=== PATIENT | male | born 1975 | race Caucasian/White ===

== ENCOUNTER 2016-10-19 12:47 | Emergency (ER) | payer BC ==
[2016-10-19 13:04] VITALS: RESP 20; TEMP 96.9
[2016-10-19] MEDS ORDERED: NORMAL SALINE 10 ML SYRINGE FLUSH IVP PRN (13:04)
--- NOTE | 2016-10-19 13:19 | PDOC ---
General Adult HPI - General Chief Complaint: General Medical Stated Complaint: SWEATS,CHILLS,BODY ACHES Date Seen by Provider: 10/19/16 Time Seen by Provider: 12:55 Source: POSITIVE: Patient Exam Limitations: POSITIVE: No limitations Nurse's Notes Reviewed & Considered: Yes - History of Present Illness Initial Comment: The patient is a 40-year-old male who presents to the emergency department with concerns about dehydration. He states that he has had previous gastric bypass surgery and at times he has had problems maintaining hydration in the past. He states for the past couple of days he's been doing some work outside, working out twice a day and probably has not drank enough fluids. He states for the past 24 hours or so he feels general malaise and generalized muscle aches as well as some increased shakiness. He reports decreased urination and dark colored urine the last 24 hours. He was able to eat breakfast and has been trying to push fluids however he states he feels like he cannot get caught up. He states that he has felt this way in the past when he is dehydrated. He denies any chest pain or shortness of breath, vomiting or diarrhea, sore throat , cough or congestion or any other associated complaints. He did recently return from an inpatient alcohol treatment facility. He states that he has been sober for 93 days and states that he remain sober. Have you received a tetanus shot in the past 10 years?: Yes - Patient Home Medications Home Medications: Home Medications Calcium Carbonate/Vitamin D3 [Calcium 500 + D Tablet] 1 each PO DAILY tab 09/12 Vit B Comp/C/FA/Iron/Vit E [Vitamin B Complex Tablet] 1 each PO DAILY tab 09/12 Cyanocobalamin (Vitamin B-12) [Vitamin B12] 2,400 mcg SL DAILY 03/04/16 Sildenafil Citrate [Viagra] 100 mg PO PRN #9 tab 05/30/16 Venlafaxine HCl [Venlafaxine Hcl Er] 1 tab PO DAILY #90 cap 08/20/16 - Patient Allergies Allergies/Adverse Reactions: Allergies Allergy/AdvReac Type Severity Reaction Status Date / Time No Known Drug Allergies Allergy Unknown NOT Verified 10/19/16 12:58 APPLICABLE Past Medical History - heen HEENT History: Denies History Cardiovascular History: Denies History Respiratory History: Denies History Gastrointestinal History: Denies History Genitourinary History: Denies History Endocrine History: Denies History Musculoskeletal History: Denies History Prosthesis or Implant: No Neurological History: Denies History Blood Disorders: Denies History Psychiatric History: Depression History of Sexually Transmitted Diseases: No Cancer History: Denies History In Past Year Been Physically Harmed or Verbally Threatened: No History of MDRO: No History of Other Communicable Diseases: No Tobacco Use: Never Smoker Alcohol Use: Sober Substance Use Type: None Previous Surgical History: Yes Type / Date of Surgery: GASTRIC BIPASS Anesthesia Reactions: No Malignant Hyperthermia: No Significant Family History: No pertinent family hx Past Medical History Reviewed: Reviewed - No Changes ROS - Limitations ROS Limitations: No Limitations Constitution: REPORTS: Chills. DENIES: Fever Cardiovascular: DENIES: Chest Pain, Heart Palpitations, Edema Neurological: DENIES: Confusion, Dizziness, Numbness, Weakness Gastrointestinal: DENIES: Abdominal Pain, Vomitting, Diarrhea Endocrine: REPORTS: Fatigue Musculoskeletal: REPORTS: Muscle Aches (Generalized) Genitourinary: REPORTS: Denies Symptoms, Other (Does report dark colored urine the last 24 hours) Eyes: REPORTS: Denies Symptoms ENT: REPORTS: Denies Symptoms Skin: DENIES: Rash General Adult Exam - General Appearance General Appearance: POSITIVE: Alert, Cooperative, No Acute Distress - HEENT HEENT: POSITIVE: Head Inspection Nml, Eyes Inspection Nml - Neck Neck: POSITIVE: Normal Inspection - Respiratory Respiratory: POSITIVE: No Respiratory Distress, Breath Sounds Normal - Cardiovascular Cardiovascular: POSITIVE: Regular Rate & Rhythm, No Murmur - Abdomen Abdomen: Soft: (All Quadrants), Normal Bowel Sounds: (All Quadrants), No Distention: (All Quadrants) - Skin Skin: POSITIVE: Normal Color, No Rash - Extremities Extremity: Normal ROM: (All Extremities), Normal Inspection: (All Extremities) - Neurological / Psychological Neurological: POSITIVE: Other (No focal neurologic deficits) General Adult Progress - Results Reviewed by me Lab Results Reviewed: Yes Lab Results:: Laboratory Results 10/19/16 10/19/16 Range/Units 13:11 13:15 WBC 9.57 (4.8-10.8) 10^3/uL RBC 4.36 L (4.70-6.10) 10^6/uL Hgb 12.6 L (14.0-18.0) g/dL Hct 37.9 L (42.0-52.0) % MCV 86.9 (80-90) FL MCH 28.9 (27-31) PG MCHC 33.2 (33-37) g/dL RDW Std Deviation 45.7 (39-50) fL RDW Coeff of [place]uma 14.7 H (11.5-14.5) % Plt Count 180 (140-350) 10*3/uL MPV 9.8 (7.4-12.2) FL Immature Gran % (Auto) 0.3 (0-5) % Neut % (Auto) 79.2 (50-80) % Lymph % (Auto) 9.4 L (10-50) % [place] % (Auto) 10.6 (5-15) % Eos % (Auto) 0.3 (0-8) % Baso % (Auto) 0.2 (0-1) % Immature Gran # (Auto) 0.03 10*3/UL Neut # (Auto) 7.85 10*3/UL Lymph # (Auto) 0.90 10*3/uL [place] # (Auto) 1.01 H (0.3-0.8) 10*3/UL Eos # (Auto) 0.03 10*3/UL Baso # (Auto) 0.02 10*3/UL WBC Morphology Comment Normal morphology (NORM) Plt Morphology Comment Normal morphology (NORM) RBC Morph Comment Normal morphology (NORM) Sodium 137 (135-145) meq/L Potassium 3.4 L (3.8-5.2) meq/L Chloride 105 (98-112) meq/L Carbon Dioxide 22 L (23-33) meq/L Anion Gap 10 (5-20) BUN 8 (7-22) mg/dL Creatinine 0.9 (0.70-1.50) mg/dL Estimated GFR > 60 (>60 ml/min/1.73m(2)) BUN/Creatinine Ratio 8.88 (6-20) Glucose 81 (78-110) mg/dL Calculated Osmolality 280.0 (267-292) mOsm/kg Calcium 8.4 L (8.7-10.7) mg/dL Magnesium 1.8 (1.6-2.4) mg/dL Total Bilirubin 2.5 H (0.3-1.2) mg/dL AST 130 H (21-57) IU/L ALT 166 H (21-72) IU/L Alkaline Phosphatase 103 (38-126) IU/L Total Creatine Kinase 1135 H (55-170) IU/L C-Reactive Protein 8.4 H (0.0-0.9) mg/dL Total Protein 6.0 L (6.1-8.0) g/dL Albumin 3.4 L (3.5-4.8) g/dL Globulin 2.6 (2.50-4.10) g/dL Albumin/Globulin Ratio 1.30 (1.3-2.0) mg/g - Patient's Progress MDM / ED Course: An IV was established and the patient did receive a 1 L bolus of normal saline. After administration of fluids the patient was feeling better clinically. His blood work does reveal elevated liver enzymes including an elevated bilirubin and transaminases. This has not been present on previous blood draws. In addition his CPK is elevated at 1135. The patient appears to have mild rhabdomyolysis which is most likely secondary to overexertion from twice daily workouts and working outside the last couple of days. He also likely has some degree of dehydration. The patient also admits he has been taking some pre -workout supplements. The exact cause of his elevated liver enzymes is unclear however he denies abdominal pain or nausea or vomiting. This also may be related to the supplements are overexertion. He is advised to rest and push fluids. He was advised to discontinue his supplements. He will return to the emergency room if he develops any worsening or change in symptoms. He is advised follow-up with primary care for repeat blood work in approximately a week. - Consult Counseled: POSITIVE: Patient, RE: Lab Results, RE: DX, RE: Need for F/U Patient Care Time - Estimated PCT Patient Care Time (In Minutes): 25 Vital Signs - Recent Vital Signs Vital Signs: Vital Signs (Last 8 hours) Temp Pulse Resp BP Pulse Ox 10/19/16 12:51 96.9 F 77 20 129/76 97 - VS Reviewed Vital Signs Reviewed: Yes Discharge Clinical Impression: Dehydration, Rhabdomyolysis, Elevated LFTs Discharge Disposition: Discharged to Home Condition: Stable Patient Instructions Given at Discharge: Dehydration (ED), Rhabdomyolysis (ED) Additional Instructions: Your blood work done here in the emergency department does reveal elevated liver enzymes as well as elevated muscle enzymes (rhabdmyolysis). This is most likely secondary to overexertion recently from multiple workouts and working outside. Recommend rest and hydration. You should discontinue any over-the- counter supplements for now. Return to the emergency room if increased muscle pain, decreased urination, any worsening or change in symptoms. You will need to follow-up with primary care in approximately a week at which time you will likely need repeat liver function testing and repeat CPK to make sure that these values have come down. Follow Up With: ASPEN CRUZ FNP [Primary Care Provider] -
[2016-10-19 13:21] LABS: BASOPHILS # (AUTO) 0.02 10*3/UL; BASOPHILS % (AUTO) 0.2 % (0-1); EOSINOPHILS # (AUTO) 0.03 10*3/UL; EOSINOPHILS % (AUTO) 0.3 % (0-8); HEMATOCRIT 37.9 % (42.0-52.0); HEMOGLOBIN 12.6 g/dL (14.0-18.0); MEAN CORPUSCULAR HEMOGLOBIN 28.9 PG (27-31); MEAN CORPUSCULAR HGB CONC 33.2 g/dL (33-37); MEAN CORPUSCULAR VOLUME 86.9 FL (80-90); MEAN PLATELET VOLUME 9.8 FL (7.4-12.2); MONOCYTES # (AUTO) 1.01 10*3/UL (0.3-0.8); MONOCYTES % (AUTO) 10.6 % (5-15); NEUTROPHILS # (AUTO) 7.85 10*3/UL; NEUTROPHILS % (AUTO) 79.2 % (50-80); RED BLOOD COUNT 4.36 10^6/uL (4.70-6.10)
[2016-10-19 13:22] LABS: PLATELET MORPHOLOGY COMMENT NORMAL MORPHOLOGY (NORM); RBC MORPHOLOGY COMMENT NORMAL MORPHOLOGY (NORM); WBC MORPHOLOGY COMMENT NORMAL MORPHOLOGY (NORM)
[2016-10-19] MEDS: Sodium Chloride 0.9% 1,000 ML PRIMARY IV ONE (13:22)
[2016-10-19 13:34] LABS: BLOOD UREA NITROGEN 8 mg/dL (7-22); BUN/CREATININE RATIO 8.88 (6-20); C-REACTIVE PROTEIN 8.4 mg/dL (0.0-0.9); CALCIUM 8.4 mg/dL (8.7-10.7); EST GLOMERULAR FILTRATION > 60 (>60 ml/min/1.73m(2)); MAGNESIUM 1.8 mg/dL (1.6-2.4); SERUM ALBUMIN 3.4 g/dL (3.5-4.8)
== END 2016-10-19 14:08 | disposition home or self-care (01) ==
LOC: ER 12:47
DX: E86.0 Dehydration (principal); M62.82 Rhabdomyolysis; R79.89 Other specified abnormal findings of blood chemistry; R53.81 Other malaise; R68.83 Chills (without fever); M62.81 Muscle weakness (generalized)
CPT/HCPCS: 80053; 82550; 83735; 85025; 86140; 96360; 99282; 99283; J7030

== ENCOUNTER → 2016-10-23 | Outpatient (CLI) | payer BC ==
[2016-10-23 09:03] LABS: SERUM ALBUMIN 3.3 g/dL (3.5-4.8)
== END ==
LOC: LAB 08:18
PROVIDERS: ATTEND Nurse Practitioner Family
DX: R74.8 Abnormal levels of other serum enzymes (principal); R94.5 Abnormal results of liver function studies
CPT/HCPCS: 36415; 80076; 82550